=== PATIENT | male | born 1975 | race Two or more races ===

== ENCOUNTER 2022-10-01 20:10 | Emergency (ER) | payer OTHER ==
[~2022-10-01] VITALS: Ht 180.3 cm; Wt 77.1 kg
[2022-10-01 21:19] VITALS: BP 126/79
[2022-10-01] MEDS ORDERED: NAPR-1009 PO (21:41)
[2022-10-01] MEDS ORDERED: CYCL5TAB PO (21:41)
== END 2022-10-01 21:45 | disposition home or self-care (01) ==
LOC: ER 20:13
DX: S39.012A Strain of muscle, fascia and tendon of lower back, initial encounter (principal); Z79.899 Other long term (current) drug therapy; X50.0XXA Overexertion from strenuous movement or load, initial encounter; Y93.89 Activity, other specified; Y92.89 Other specified places as the place of occurrence of the external cause; Y99.8 Other external cause status